=== PATIENT | male | born 1950 | race Caucasian/White ===

== ENCOUNTER → 2018-12-09 | Day surgery (SDC) | payer MEDICARE ==
[2018-12-06 17:38] LABS: BASOPHILS # (AUTO) 0.1 (0.0-0.1); BASOPHILS % 0.5 % (0.0-1.0); EOSINOPHILS # (AUTO) 0.2 (0.0-0.4); EOSINOPHILS % 2.1 % (0.0-6.0); HEMATOCRIT 40.1 % (38.2-49.6); HEMOGLOBIN 13.7 g/dL (14.0-18.0); LYMPHOCYTES # (AUTO) 2.4 (1.0-3.2); LYMPHOCYTES % 22.3 % (18.0-39.1); MEAN CORPUSCULAR HEMOGLOBIN 30.9 pg (28-32); MEAN CORPUSCULAR HGB CONC 34.2 g/dL (31-35); MEAN CORPUSCULAR VOLUME 90.3 fL (81-99); MONOCYTES % 9.2 % (4.4-11.3); NEUTROPHILS # (AUTO) 7.1 (2.1-6.9); NEUTROPHILS % 65.6 % (38.7-80.0); PLATELET COUNT 220 x10e3/uL (140-360); RED BLOOD COUNT 4.44 x10e6/uL (4.3-5.7); RED CELL DISTRIBUTION WIDTH 12.6 % (11.7-14.4)
--- NOTE | 2018-12-06 17:42 | Diagnostic Imaging Report ---
EXAMINATION: CHEST 2 VIEWS INDICATION: ^PREOP COMPARISON: None FINDINGS: AP view TUBES and LINES: None. LUNGS/PLEURA: The lungs are clear. No pleural effusion or pneumothorax. HEART AND MEDIASTINUM: The cardiomediastinal silhouette is unremarkable. BONES AND SOFT TISSUES: No acute osseous lesion. Soft tissues are unremarkable. Spinal stimulator in the midthoracic spinal canal posteriorly. Median sternotomy wires. Calcific aortic arch. Partially visualized ACDF lower cervical. UPPER ABDOMEN: No free air under the diaphragm. IMPRESSION: No acute thoracic abnormality. Signed by: Davon Garcia MD on 12/06/2018 5:39 PM
[2018-12-06 17:58] LABS: ANION GAP 12.4 mmol/L (8-16); BLOOD UREA NITROGEN 22 mg/dL (7-26); BUN/CREATININE RATIO 19 (6-25); CALCIUM 9.6 mg/dL (8.4-10.2); CARBON DIOXIDE 26 mmol/L (22-29); CHLORIDE 101 mmol/L (98-107); CREATININE, SERUM 1.14 mg/dL (0.72-1.25); EST GLOMERULAR FILTRATION RATE > 60 ML/MIN (60-); GLUCOSE 224 mg/dL (74-118); POTASSIUM 4.4 mmol/L (3.5-5.1); SODIUM 135 mmol/L (136-145)
[~2018-12-09] MED LIST: ASPIRIN325 MG PO; ATORVASTATIN CA20 MG PO; BACITRACIN 50,000 UNIT VIAL ONE; CASCARA SAGRADA PO; CEFAZOLIN SOD 1 GM/NS 50ML 50 ML IV ONE; CLONAZEPAM0.5 MG PO; FENTANYL CITRATE/PF 100MCG/2 ML INJ ONE; GABAPENTIN400 MG PO; LIDOCAINE 1% W/EPINEPHRINE 20 ML VIAL ONE; LIDOCAINE HCL 2% LOCAL INJ 5 ML SDV VIAL INJ ONE; LISINOPRIL10 MG PO; METHOCARBAMOL750 MG PO; MIDAZOLAM HCL 2 MG/2 ML VIAL ONE; MUPIROCIN 2% OINT 22 GM TUBE ONE; NICOTINE PATCH1 EAC5 TOP; NORCO 10-325 T1 EACH PO; NOVOLOG100 UNIT/1 SQ; ONDANSETRON HCL INJ 2MG/ML 2ML 2 MG/ML VIAL ONE; PROPOFOL IV EMULSION 10 MG/ML 20 ML VIAL ONE; SEVOFLURANE INHAL SOLN 250 ML PEN BTL ONE; [UNRECOGNIZED DRUG - OTHER] PO; basaglar SQ
--- OUTSIDE RECORDS SUMMARY | 2018-12-09 05:22 | XMS REPORT | Clinical Summary ---
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 Role Phone Corwin Doyle MD PCP Allergies Comments Active Allergy Reactions Severity Noted Date Naproxen Sodium Anaphylaxis High 10/26/2015 SEIZURES; STATES HEART STOPPED AND HAD TO BE SHOCKED Meperidine Anaphylaxis, High 10/26/2015 Other (See Comments) All anti-inflammatory drugs Ibuprofen Swelling High 09/08/2016 HARD TO BREATH Naproxen Swelling 10/26/2015 Nsaids (Non-Steroidal Anti-Inflammatory Drug) All anti inflammatories Other Swelling 09/01/2016 Medications End Date Status Medication Sig Dispensed Refills Start Date Active pen needle, diabetic 33 USE TO 0 gauge x 5/16" needle ADMINISTER INSULIN Active gabapentin (NEURONTIN) Take 300 mg 0 300 mg capsule by mouth. Active HYDROcodone-acetaminophen TAKE ONE (1) 0 (NORCO) 10-325 mg per TABLET(S) BY 7 tablet MOUTH EVERY FOUR HOURS MAX OF 5 TABLETS PER DAY. Active methocarbamol (ROBAXIN) Take 750 mg 0 750 MG tablet by mouth 4 (four) times a day. Active atorvastatin (LIPITOR) 40 Take 40 mg by 0 MG tablet mouth daily. Active insulin Inject under 0 glargine,hum.rec.anlog the skin. 30 (LANTUS U-100 INSULIN units at SUBQ) night Active acetaminophen 500 mg Take by mouth 0 coapsule 2 (two) times a day. Active ascorbic acid, vitamin C, Take 500 mg 0 (VITAMIN C) 500 MG tablet by mouth daily. 04/22/2019 Active albuterol (VENTOLIN HFA) Inhale 2 18 g 11 90 mcg/actuation puffs every 6 8 inhalerIndications: (six) hours Prescription refill as needed for wheezing. Active fluticasone-vilanterol Inhale 1 5 each 2 (BREO ELLIPTA) 100-25 inhalations 8 mcg/dose blister with once daily. device powder for inhalationIndications: Prescription refill 05/28/2019 Active testosterone cypionate INJECT ONE 10 mL 4 (DEPOTESTOTERONE (1) ML(S) 8 CYPIONATE) 200 mg/mL INTRAMUSCULAR injectionIndications: LY EVERY 2 Hypogonadism in male WEEKS. 10/11/2019 Active insulin GLARGINE (LANTUS Inject 30 15 mL 5 SOLOSTAR) 100 unit/mL Units under 9 injection (pen) the skin nightly. Active insulin ASPART (NovoLOG 15units three 60 mL 3 Flexpen U-100 Insulin) times a day 9 100 unit/mL insulin pen Active lisinopril TAKE ONE (1) 90 tablet 0 (PRINIVIL,ZESTRIL) 20 mg TABLET(S) BY 9 tablet MOUTH DAILY. 01/19/2018 Discontinued insulin lispro (HumaLOG Inject 15 20 pen 3 KwikPen) 100 unit/mL Units under 7 insulin pen the skin 3 (three) times a day. 01/19/2018 Discontinued LEVEMIR FLEXTOUCH 100 INJECT 30 6 pen 2 unit/mL (3 mL) insulin UNITS 7 pen SUBCUTANEOUSL Y EVERY DAY. 02/11/2018 Discontinued lisinopril Take 1 tablet 90 tablet 1 (PRINIVIL,ZESTRIL) 20 mg (20 mg total) 7 tablet by mouth daily. 04/06/2018 Discontinued tiZANidine (ZANAFLEX) 4 Take 4 mg by 0 MG tablet mouth every 8 (eight) hours as needed for muscle spasms. 04/09/2018 Discontinued aspirin 325 MG tablet Take 325 mg 0 by mouth. 04/22/2018 Discontinued albuterol (PROAIR Inhale 2 18 g 5 HFA,PROVENTIL puffs every 6 8 HFA,VENTOLIN HFA) 90 (six) hours mcg/actuation as needed for inhalerIndications: wheezing. Respiratory infection 04/21/2018 Discontinued testosterone cypionate Inject 200mg 2 kit 5 200 mg/mL kitIndications: (1mL) every 2 8 Hypogonadism in male weeks intramuscular ly. 01/25/2018 Discontinued tamsulosin (FLOMAX) 0.4 TAKE 1 30 capsule 1 mg capsule,extended CAPSULE (0.4 8 release 24hrIndications: MG TOTAL) BY Urinary frequency, Benign MOUTH DAILY. prostatic hyperplasia with lower urinary tract symptoms, symptom details unspecified 03/16/2018 testosterone cypionate Inject 1 mL 10 mL 2 (DEPOTESTOTERONE (100 mg 8 CYPIONATE) 100 mg/mL total) into injection the shoulder, thigh, or buttocks every 14 (fourteen) days for 90 days. 01/22/2018 clonAZEPAM (KlonoPIN) 0.5 TAKE ONE (1) 180 tablet 0 MG tablet TABLET(S) BY 8 MOUTH TWICE A DAY NEEDED FOR ANXIETY. 01/20/2018 Discontinued insulin DETEMIR (LEVEMIR INJECT 30 45 mL 1 FLEXTOUCH U-100 INSULN) UNITS 8 100 unit/mL (3 mL) SUBCUTANEOUSL insulin pen Y EVERY DAY. 04/06/2018 Discontinued insulin lispro (HumaLOG Inject 15 20 pen 3 KwikPen Insulin) 100 Units under 8 unit/mL injection pen the skin 3 (three) times a day. 01/20/2018 Discontinued insulin GLARGINE (LANTUS Inject 30 9 mL 3 SOLOSTAR) 100 unit/mL Units under 8 injection the skin (pen)Indications: Type 2 nightly. diabetes mellitus without complication, with long-term current use of insulin ([facility]) 04/06/2018 Discontinued insulin GLARGINE Inject 30 9 mL 3 (BASAGLAR KWIKPEN U-100 Units under 8 INSULIN) 100 unit/mL the skin injection nightly. (pen)Indications: Type 2 diabetes mellitus without complication, with long-term current use of insulin ([facility]) 04/06/2018 Discontinued tamsulosin (FLOMAX) 0.4 TAKE ONE (1) 30 capsule 0 mg capsuleIndications: CAPSULE(S) BY 8 Urinary frequency, Benign MOUTH DAILY. prostatic hyperplasia with lower urinary tract symptoms, symptom details unspecified 06/23/2018 Discontinued lisinopril TAKE ONE (1) 90 tablet 0 (PRINIVIL,ZESTRIL) 20 mg TABLET(S) BY 8 tablet MOUTH DAILY. 04/09/2018 Discontinued UNABLE TO FIND ketotifen 0 04/22/2018 Discontinued metoprolol succinate XL Take 25 mg by 0 (TOPROL-XL) 25 mg 24 hr mouth daily. tablet 06/23/2018 Discontinued clonAZEPAM (KlonoPIN) 0.5 Take 0.5 mg 0 MG tablet by mouth 2 (two) times a day as needed for seizures. 04/22/2018 Discontinued fluticasone-vilanterol Inhale 1 0 (BREO ELLIPTA) 100-25 inhalations mcg/dose blister with once daily. device powder for inhalation 10/11/2018 Discontinued insulin aspart (NOVOLOG Inject under 0 FLEXPEN U-100 INSULIN the skin. 15 SUBQ) three times a day 04/09/2018 Discontinued sildenafil (VIAGRA) 100 TAKE ONE (1) 5 MG tablet TABLET(S) BY 8 MOUTH EVERY DAY NEEDED. 04/22/2018 Discontinued testosterone cypionate INJECT ONE 5 (DEPOTESTOTERONE (1) ML(S) 8 CYPIONATE) 200 mg/mL INTRAMUSCULAR injection LY EVERY 2 WEEKS. 04/14/2018 acetaminophen-codeine Take 1-2 40 tablet 0 (TYLENOL WITH CODEINE #3) tablets by 8 300-30 mg per tablet mouth every 6 (six) hours as needed for moderate pain for up to 5 days. 05/09/2018 docusate sodium (COLACE) Take 1 60 capsule 0 100 MG capsule capsule (100 8 mg total) by mouth 2 (two) times a day for 30 days. 04/19/2018 ciprofloxacin (CIPRO) 500 Take 1 tablet 20 tablet 0 MG tablet (500 mg 8 total) by mouth 2 (two) times a day for 10 days. 05/09/2018 docusate sodium (COLACE) Take 1 60 capsule 0 100 MG capsule capsule (100 8 mg total) by mouth 2 (two) times a day for 30 days. 04/22/2018 Discontinued testosterone cypionate INJECT ONE 10 mL 4 (DEPOTESTOTERONE (1) ML(S) 8 CYPIONATE) 200 mg/mL INTRAMUSCULAR injectionIndications: LY EVERY 2 Hypogonadism in male WEEKS. 04/22/2018 Discontinued testosterone cypionate INJECT ONE 10 mL 5 (DEPOTESTOTERONE (1) ML(S) 8 CYPIONATE) 200 mg/mL INTRAMUSCULAR injectionIndications: LY EVERY 2 Prescription refill WEEKS. 07/21/2018 testosterone cypionate INJECT ONE 10 mL 5 (DEPOTESTOTERONE (1) ML(S) 8 CYPIONATE) 200 mg/mL INTRAMUSCULAR injectionIndications: LY EVERY 2 Prescription refill WEEKS. 10/12/2018 Discontinued lisinopril TAKE ONE (1) 90 tablet 0 (PRINIVIL,ZESTRIL) 20 mg TABLET(S) BY 8 tablet MOUTH DAILY. 09/22/2018 clonAZEPAM (KlonoPIN) 0.5 TAKE ONE (1) 180 tablet 0 MG tablet TABLET(S) BY 8 MOUTH TWICE A DAY NEEDED FOR ANXIETY. Active Problems Problem Noted Date CAD in [place] artery 10/26/2015 Hypogonadism in male 08/24/2015 Nicotine dependence 08/24/2015 Type 2 diabetes mellitus 08/24/2015 Encounters Care Team Description Date Type Specialty Isabel Villalta 11/24/2018 Patient Quality Outreach Corwin Doyle MD 10/14/2018 Telephone Internal Medicine Corwin Doyle MD 10/12/2018 Refill Internal Medicine Marina Villanueva MA 10/11/2018 Orders Only Internal Medicine Marina Villanueva MA 10/01/2018 Telephone Internal Medicine Corwin Doyle MD Flank pain 09/30/2018 Hospital Radiology Encounter Corwin Doyle MD Flank pain (Primary Dx); Type 2 diabetes mellitus with hyperglycemia, with long-term current use of insulin (HCC); Open wound of right foot, initial encounter 09/23/2018 Office Visit Internal Medicine Angela Deleon MA 09/10/2018 Refill Access Corwin Doyle MD 06/23/2018 Refill Internal Medicine Corwin Doyle MD 06/23/2018 Refill Internal Medicine Corwin Doyle MD Hypogonadism in male 05/27/2018 Refill Internal Medicine Corwin Doyle MD Type 2 diabetes mellitus without complication, with long-term current use of insulin (HCC) (Primary Dx); Pain in both upper extremities; Prescription refill 04/22/2018 Office Visit Internal Medicine Corwin Doyle MD Hypogonadism in male 04/21/2018 Refill Internal Medicine Mary Lou Garcia FNP 04/09/2018 Anesthesia General Surgery Event Dilshad Garcias MD PLACEMENT OF COLOPLAST TITAN INFLATABLE PENILE PROSTHESIS 04/09/2018 Surgery General Surgery Dilshad Garcias MD 04/09/2018 [facility] General Surgery Encounter Dilshad Garcias MD Preop testing (Primary Dx) 04/06/2018 Pre-Admit Pre-Admission Testing Testing Appointment Corwin Doyle MD 02/11/2018 Refill Internal Medicine Corwin Doyle MD Urinary frequency; Benign prostatic hyperplasia with lower urinary tract symptoms, symptom details unspecified 01/25/2018 Refill Internal Medicine Corwin Doyle MD Type 2 diabetes mellitus without complication, with long-term current use of insulin (Primary Dx) 01/20/2018 Office Visit Internal Medicine Marina Villanueva MA 01/19/2018 Orders Only Internal Medicine Corwin Doyle MD 01/18/2018 Refill Internal Medicine Corwin Doyle MD 12/23/2017 Refill Internal Medicine Marina Villanueva MA 12/16/2017 Orders Only Internal Medicine after 12/08/2017 Family History Medical History Relation Name Comments Heart disease Father Heart disease Mother Kidney disease Mother Relation Name Status Comments Father Mother Social History Date Tobacco Use Types Packs/Day Years Used Current Every Day Smoker Cigarettes 1 55 Smokeless Tobacco: Never Used Tobacco Cessation: Ready to Quit: Yes; Counseling Given: Yes Alcohol Use Drinks/Week oz/Week Comments Yes social Sex Assigned at Date Recorded Not on file Industry Job Start Date Occupation Not on file Not on file Not on file Travel End Travel History Travel Start No recent travel history available. Last Filed Vital Signs Time Taken Vital Sign Reading 09/23/2018 1:16 PM CDT Blood Pressure 150/69 09/23/2018 1:16 PM CDT Pulse 77 04/09/2018 12:15 PM CDT Temperature 36.6 C (97.8 F) 04/09/2018 1:30 PM CDT Respiratory Rate 20 04/09/2018 1:30 PM CDT Oxygen Saturation 96% - Inhaled Oxygen - Concentration 09/23/2018 1:16 PM CDT Weight 114 kg (252 lb) 09/23/2018 1:16 PM CDT Height 182.9 cm (6') 09/23/2018 1:16 PM CDT Body Mass Index 34.18 Plan of Treatment Health Maintenance Due Date Last Done Comments SHINGLES VACCINES (#1) 1998 65+ PNEUMOCOCCAL VACCINE 2013 (1 of 2 - PCV13) URINE MICROALBUMIN 08/06/2018 08/06/2017 COLONOSCOPY SCREENING 12/27/2018 Postponed from 1998 (Patient Refused) DIABETIC FOOT EXAM 01/22/2019 01/22/2018, 01/22/2018 INFLUENZA VACCINE 01/27/2019 DIABETIC RETINAL EYE EXAM 01/12/2020 01/11/2018, 03/31/2017 (Previously completed) Procedures Comments Procedure Name Priority Date/Time Associated Diagnosis US ABDOMEN COMPLETE Routine 09/30/2018 Flank pain 10:18 AM CDT URINALYSIS, COMPLETE, Routine 09/24/2018 Flank pain WITH REFLEX TO CULTURE 11:30 AM CDT COMPREHENSIVE METABOLIC Routine 09/24/2018 Flank pain PANEL 11:30 AM CDT CBC WITH PLATELET AND Routine 09/24/2018 Flank pain DIFFERENTIAL 11:30 AM CDT POC GLYCOSYLATED Routine 09/23/2018 Type 2 diabetes mellitus HEMOGLOBIN (HGB A1C) 1:30 PM CDT with hyperglycemia, with long-term current use of insulin (HCC) POC GLYCOSYLATED Routine 04/22/2018 Type 2 diabetes mellitus HEMOGLOBIN (HGB A1C) 12:19 PM CDT without complication, with long-term current use of insulin (HCC) POC GLUCOSE Routine 04/09/2018 9:55 AM CDT DE AN ELECTIVE Routine 04/09/[address] SU[address]LOTTIC AIRWAY 8:34 AM CDT Procedure Note - Faby Monet CRNA - 04/09/2018 8:34 AM CDT Airway Date/Time: 04/09/2018 8:00 AM Performed by: FABY MONET Authorized by: RAKESH ANNE Location: OR Urgency: Elective Difficult Airway: No Anesthesio logist: RAKESH ANNE Resident/C RNA/AA: FABY MONET Performed by: resident/C RNA/AA Preoxygena arnol with 100% O2: Yes C-spine Precaution s Maintained Throughout : Yes Mask Ventilatio n: Not attempted Final Airway Type: Supraglott ic airway Final LMA: Unique LMA Size: 4 Number of Attempts at Approach: 1 Atraumati c LMA insertion; lips/teeth /gums unchanged. POC GLUCOSE Routine 04/09/2018 6:28 AM CDT ECG 12-LEAD Routine 04/06/2018 Preop testing 12:51 PM CDT ESTIMATED GFR Routine 04/06/2018 12:46 PM CDT PARTIAL THROMBOPLASTIN Routine 04/06/2018 Preop testing TIME (PTT) 12:46 PM CDT PROTHROMBIN TIME WITH INR Routine 04/06/2018 Preop testing 12:46 PM CDT HC COMPLETE BLD COUNT Routine 04/06/2018 Preop testing W/AUTO DIFF 12:46 PM CDT BASIC METABOLIC PANEL Routine 04/06/2018 Preop testing 12:46 PM CDT POC GLYCOSYLATED Routine 01/20/2018 Type 2 diabetes mellitus HEMOGLOBIN (HGB A1C) 3:07 PM CDT without complication, with long-term current use of insulin after 12/08/2017 Results * US Abdomen Complete (09/30/2018 10:18 AM CDT) Specimen Narrative Performed At EXAM: US ABDOMEN COMPLETE [facility] CLINICAL DATA:R10.9 Unspecified abdominal pain, flank pain TECHNIQUE: Sonographic evaluation of the abdomen was performed. COMPARISON: NONE. IMPRESSION: 1.Hepatic echogenicity is normal. The liver is normal size. There are no discrete lesions. There is no evidence of intrahepatic biliary ductal dilation The common bile duct has normal caliber. The portal vein is patent with normal hepatopetal flow. 2.The gallbladder is normal. There is no evidence of cholelithiasis, pericholecystic fluid, or gallbladder wall thickening. 3.Limited views of the pancreas are unremarkable. 4.The kidneys are normal size. The kidneys have normal echogenicity. Vascular flow is unremarkable. There is no evidence of hydronephrosis or perinephric fluid. Bilateral simple appearing renal cysts, largest is on the left measuring up to 2.1 cm. 6 mm nonobstructing stone in the lower pole right kidney. 5.The spleen has normal echogenicity. The spleen is normal size. 6.No evidence of ascites. 7.Visualized aorta and IVC are unremarkable. [id number] Procedure Note Interface, Radiology Results Incoming - 09/30/2018 11:23 AM CDT EXAM: US ABDOMEN COMPLETE CLINICAL DATA: R10.9 Unspecified abdominal pain, flank pain TECHNIQUE: Sonographic evaluation of the abdomen was performed. COMPARISON: NONE. IMPRESSION: 1. Hepatic echogenicity is normal. The liver is normal size. There are no discrete lesions. There is no evidence of intrahepatic biliary ductal dilation The common bile duct has normal caliber. The portal vein is patent with normal hepatopetal flow. 2. The gallbladder is normal. There is no evidence of cholelithiasis, pericholecystic fluid, or gallbladder wall thickening. 3. Limited views of the pancreas are unremarkable. 4. The kidneys are normal size. The kidneys have normal echogenicity. Vascular flow is unremarkable. There is no evidence of hydronephrosis or perinephric fluid. Bilateral simple appearing renal cysts, largest is on the left measuring up to 2.1 cm. 6 mm nonobstructing stone in the lower pole right kidney. 5. The spleen has normal echogenicity. The spleen is normal size. 6. No evidence of ascites. 7. Visualized aorta and IVC are unremarkable. [id number] Performing Organization Address City/State/Zipcode Phone Number [facility] [address] [place] [address] * URINALYSIS, COMPLETE, WITH REFLEX TO CULTURE (09/24/2018 11:30 AM CDT) Color, UA YELLOW YELLOW [facility] Appearance CLEAR CLEAR [facility] Specific 1.026 1.001 - 1.035 [facility] gravity, urine [facility] [place] pH, urine < OR=5.0 5.0 - 8.0 [facility] Glucose, urine 3+ (A) NEGATIVE [facility] Bilirubin, UA NEGATIVE NEGATIVE [facility] Ketones, UA NEGATIVE NEGATIVE [facility] Occult blood, NEGATIVE NEGATIVE [facility] Protein, UA 2+ (A) NEGATIVE [facility] Nitrite, UA NEGATIVE NEGATIVE [facility] Leukocyte NEGATIVE NEGATIVE [facility] esterase, [facility] WBC, UA NONE SEEN < OR=5 /HPF [facility] RBC, UA NONE SEEN < OR=2 /HPF [facility] Squamous NONE SEEN < OR=5 /HPF [facility] epithelial [facility]AG[facility] cells, UA [facility] Bacteria, UA NONE SEEN NONE SEEN /HPF [facility] Hyaline casts, NONE SEEN NONE SEEN /LPF [facility] UA [facility] Reflex NO CULTURE INDICATED [employer] [facility] Specimen Narrative Performed At FASTING:NO [facility] FASTING: NO Resulting Agency Comment Performing Organization Information: Site ID: [id number] Name: [facility] Address: [address] [place] [id number] Director: Rae Petit Performing Organization Address City/State/Zipcode Phone Number [facility] [address] [address] * CBC with platelet and differential (09/24/2018 11:30 AM CDT) Only the most recent of 2 results within the time period is included. WBC 10.3 3.8 - 10.8 [facility] Thousand/uL [facility] RBC 4.50 4.20 - 5.80 [facility] Million/uL [facility] HGB 14.0 13.2 - 17.1 g/dL [facility] HCT 41.0 38.5 - 50.0 % [facility] MCV 91.1 80.0 - 100.0 fL [facility] MCH 31.1 27.0 - 33.0 pg [facility] MCHC 34.1 32.0 - 36.0 g/dL [facility] RDW 12.2 11.0 - 15.0 % [facility] Platelet count 222 140 - 400 [facility] Thousand/uL [facility] MPV 11.2 7.5 - 12.5 fL [facility] [place] Neutrophils, 6,293 1,500 - 7,800 [facility] absolute cells/uL [facility] [place] Lymphocytes, 2,781 850 - 3,900 cells/uL [facility] absolute [facility] [place] Monocytes, 927 200 - 950 cells/uL [facility] Eosinophils, 216 15 - 500 cells/uL [facility] absolute [facility] [place] Basophils, 82 0 - 200 cells/uL [facility] absolute [facility] [place] Neutrophils 61.1 % [facility] Lymphocytes 27.0 % [facility] Monocytes 9.0 % [facility] Eosinophils 2.1 % [facility] Basophils + RC 0.8 % [facility] Specimen Blood Narrative Performed At FASTING:NO [facility] FASTING: NO Resulting Agency Comment Performing Organization Information: Site ID: [id number] Name: [facility] Address: [address] [place] [address] Director: Rae Petit Performing Organization Address City/State/Zipcode Phone Number [facility] [facility] [address] [place] [address] * Comprehensive metabolic panel (09/24/2018 11:30 AM CDT) Glucose 240 (H) 65 - 139 mg/dL [facility] Comment: [facility] Non-fasting [facility] reference interval BUN, whole 20 7 - 25 mg/dL [facility] blood [facility] Creatinine 0.93 0.70 - 1.18 mg/dL [facility] Comment: DIAGNOSTICS For patients >49 years of age, [facility] the reference limit for Creatinine is approximately 13% higher for people identified as -[place]. EGFR Non-Afr. 83 > OR=60 [facility] [place] mL/min/1.73m2 [facility] EGFR 96 > OR=60 [facility] [place] mL/min/1.73m2 [facility] BUN/creatinine NOT APPLICABLE 6 - 22 (calc) [facility] ratio [facility] Sodium 136 135 - 146 mmol/L [facility] Potassium 4.7 3.5 - 5.3 mmol/L [facility] Chloride 102 98 - 110 mmol/L [facility] CO2 27 20 - 32 mmol/L [facility] Calcium 9.2 8.6 - 10.3 mg/dL [facility] Protein 6.4 6.1 - 8.1 g/dL [facility] Albumin, S 4.1 3.6 - 5.1 g/dL [facility] Globulin, total 2.3 1.9 - 3.7 g/dL [facility] (calc) [facility] Albumin/globuli 1.8 1.0 - 2.5 (calc) [facility] n ratio [facility] Total bilirubin 0.5 0.2 - 1.2 mg/dL [facility] Alkaline 78 40 - 115 U/L [facility] phosphatase [facility] AST 17 10 - 35 U/L [facility] ALT 9 9 - 46 U/L [facility] Specimen Blood Narrative Performed At FASTING:NO [facility] FASTING: NO Resulting Agency Comment Performing Organization Information: Site ID: [id number] Name: [facility] Address: [address] [place] [address] Director: Rae Petit Performing Organization Address City/State/Zipcode Phone Number [facility] [address] [place] [address] * POC glycosylated hemoglobin (Hb A1C) (09/23/2018 1:30 PM CDT) Only the most recent of 3 results within the time period is included. [facility] POC Hemoglobin 9.2 % A1C Specimen Blood * POC glucose (04/09/2018 9:55 AM CDT) Only the most recent of 2 results within the time period is included. [facility] POC glucose 183 (H) 65 - 99 mg/dL [facility] Comment: OF PATHOLOGY RN Notified AND GENOMIC Meter ID: [id number] MEDICINE Roller Varnisher: Delfina Carpenter Specimen Performing Organization Address [facility] Phone Number [facility] OF [address] [place] [address] PATHOLOGY AND GENOMIC MEDICINE * ECG 12 lead (04/06/2018 12:51 PM CDT) [facility] Ventricular 81 [facility] rate Atrial rate 81 [facility] DE interval 168 [facility] QRSD interval 148 [facility] QT interval 410 [facility] QTC interval 476 [facility] P axis 1 70 [facility] QRS axis 1 97 [facility] T wave axis -79 [facility] EKG impression Normal sinus rhythm-Possible [facility] Left atrial enlargement-Nonspecific intraventricular block-Possible Lateral infarct , age undetermined-Abnormal ECG-In automated comparison with ECG of 31-JUL-2016 15:48,-T wave inversion less evident in Lateral leads- Specimen Performing Organization Address City/[facility] Phone Number [facility] [address] [place] [address] * Estimated GFR (04/06/2018 12:46 PM CDT) [facility] Estimated GFR 87 mL/min/1.73 m2 [facility] Comment: OF PATHOLOGY CatergoryUnitsInte AND GENOMIC rpretation MEDICINE G1 >=90 Normal or high G2 60-89Mildly decreased [id number] Mildly to moderately decreased [id number] Moderately to severely decreased G4 15-29Severely decreased G5 <15Kidney failure The eGFR was calculated using the Chronic Kidney Disease Epidemiology Collaboration (CKD-EPI) equation. Interpretation is based on recommendations of the National Kidney Foundation-Kidney Disease Outcomes Quality Initiative (NKF-KDOQI) published in 2014. Specimen Plasma specimen Performing Organization Address [facility] [place] [address] PATHOLOGY AND [facility] * Partial thromboplastin time, activated (04/06/2018 12:46 PM CDT) Pathologist [facility] PTT 31.8 23.0 - 36.0 sec [facility] Comment: OF PATHOLOGY PTT therapeutic range for AND GENOMIC unfractionated heparin is MEDICINE 61.0-112.0 seconds which corresponds to Anti-Xa 0.3-0.7 U/ml. Specimen Blood Performing Organization Address [facility] [place] [address] PATHOLOGY AND [facility] * Prothrombin time with INR (04/06/2018 12:46 PM CDT) Pathologist [facility] Prothrombin 14.5 12.0 - 15.0 sec [facility] time OF PATHOLOGY AND [facility] INR 1.1 [facility] Comment: OF PATHOLOGY The International Normalized AND GENOMIC Ratio (INR) is a therapeutic MEDICINE monitoring tool for patients who are stable on oral anticoagulant therapy. An INR of 2.0-3.0 is suggested for deep vein thrombosis/pulmonary embolism. Specimen Blood Performing Organization Address [facility] [place] [address] PATHOLOGY AND [facility] * Basic metabolic panel (04/06/2018 12:46 PM CDT) Pathologist [facility] Sodium 136 135 - 148 mEq/L [facility] OF PATHOLOGY AND GENOMIC MEDICINE Potassium 5.1 (H) 3.5 - 5.0 mEq/L [facility] Chloride 100 98 - 112 mEq/L [facility] CO2 27 24 - 31 mEq/L [facility] Anion gap 9@ANIO 7 - 15 mEq/L [facility] BUN 15 8 - 23 mg/dL [facility] Creatinine 0.87 0.70 - 1.20 mg/dL [facility] Glucose 162 (H) 65 - 99 mg/dL [facility] Calcium 9.6 8.8 - 10.2 mg/dL [facility]IC[facility] Specimen Plasma specimen Performing Organization Address City/State/Zipcode Phone Number [place] [phone] [facility] [place] [address] PATHOLOGY AND GENOMIC MEDICINE after 12/08/2017 Insurance Type Payer Benefit Subscriber ID Effective Phone Address Plan / Dates Group Medicare MEDICARE MEDICARE xxxxxxxxxxx 2013- [place], PART A AND Present [place] B Commercial AAR AAR xxxxxxxxxxx 2013- SUPPLEMENT Present ([place]) [address] [place] [address] Advance Directives Patient has advance care planning documents on file. For more information, fernando de luna contact: Elpidio Stein [address] [place] [address]
--- OUTSIDE RECORDS SUMMARY | 2018-12-09 05:23 | XMS REPORT | Clinical Summary ---
Author Author [facility] Address Unknown Phone Unavailable Care Team Providers Care Transit Police Officer Name Role Phone Corwin Doyle PCP Allergies Comments Active Allergy Reactions Severity Noted Date All anti-inflammatory drugs Ibuprofen Swelling 09/08/2016 Meperidine Anaphylaxis High 09/08/2016 Medications End Date Status Medication Sig Dispensed Refills Start Date Active tiZANidine (ZANAFLEX) 4 Take 4 mg by 0 MG tablet mouth every 6 (six) hours as needed. Active insulin detemir (LEVEMIR) Inject 30 0 100 unit/mL injection Units subcutaneousl y nightly. Active insulin lispro (HUMALOG) Inject 15 0 100 unit/mL injection Units subcutaneousl y 3 (three) times daily before meals. Active albuterol-ipratropium Inhale 2 0 (COMBIVENT) 18-103 puffs by mcg/actuation inhaler mouth via inhaler every 6 (six) hours as needed for Wheezing. Active lisinopril Take 20 mg by 0 (PRINIVIL,ZESTRIL) 20 MG mouth daily. tablet Active clonazePAM (KLONOPIN) 0.5 Take 0.5 mg 0 MG tablet by mouth 2 (two) times daily as needed for Anxiety. Active aspirin 325 MG tablet Take 325 mg 0 by mouth daily. Active HYDROcodone-acetaminophen Take 1 tablet 0 (NORCO 10-325) 10-325 mg by mouth per tablet every 6 (six) hours as needed for Pain. Active gabapentin (NEURONTIN) Take 300 mg 0 300 MG capsule by mouth 3 (three) times daily. Active ACETAMINOPHEN/DIPHENHYDRA Take by 0 MINE (TYLENOL PM ORAL) mouth. Active senna (SENOKOT) 8.6 mg Take 1 tablet 0 tablet by mouth daily. Active CASCARA SAGRADA ORAL Take by 0 mouth. Active Missing or Non-Formulary ASTHAFEN 0 Medication 1 MG . Active Problems Problem Noted Date Chronic pain disorder 09/19/2016 Social History Date Tobacco Use Types Packs/Day Years Used Current Every Day Smoker 1 50 Alcohol Use Drinks/Week oz/Week Comments Yes 1 Glasses of 0.6 wine Sex Assigned at Date Recorded Not on file Industry Job Start Date Occupation Not on file Not on file Not on file Travel End Travel History Travel Start No recent travel history available. Last Filed Vital Signs Not on file Plan of Treatment Not on file Implants Device Identifier Shelf Expiration Date Model / Serial / Lot Implanted Type Area Manufactur er 01/25/2020 [id number] / / [id number] Lead Vectris Surescan 1x8 60cm Pain N/A: Spine [employer]: [id number] - [id number] Mgmt/Stimu Lumbar NEUROMODUL Implanted: Qty: 1 on 09/19/2016 by Ck Simmons MD 07/14/2020 [id number] / / [id number] Lead Vectris Surescan 1x8 60cm Pain N/A: Spine [employer]: [id number] - [id number] Mgmt/Stimu Lumbar NEUROMODUL Implanted: Qty: 1 on 09/19/2016 by Ck Simmons MD 06/18/2020 [id number] / / [id number] Kt [facility] Medtronic [id number] - Pain N/A: Spine [employer]: [id number] Mgmt/Stimu Lumbar NEUROMODUL Implanted: Qty: 1 on 09/19/2016 by Ck Simmons MD 07/26/2017 [id number] / [id number] / Sensor Surescan Restore [id number] - Pain N/A: Spine [employer]: [id number] Mgmt/Stimu Lumbar NEUROMODUL Implanted: Qty: 1 on 09/19/2016 [place] [id number] / [id number] / 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 Mystim Pat [id number] - Pain [employer]: [id number] Mgmt/Stimu NEUROMODUL Implanted: Qty: 1 on 09/19/2016 [place] [id number] / [id number] / 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
--- OUTSIDE RECORDS SUMMARY | 2018-12-09 05:23 | XMS REPORT ---
Author Author [facility] Address Unknown Phone Unavailable Care Team Providers Care Drosophere Operator Name Role Phone IBETH IBRAHIM Unavailable Unavailable ERIN JAVIER Unavailable Unavailable Payers Payer Name Policy Type Policy Number Effective Date Expiration Date Problems This patient has no known problems. Allergies, Adverse Reactions, Alerts Allergy Name Allergy Type Status Severity Reaction(s) Onset Date Inactive Date Treating Clinician Comments NSAIDS (Non-Steroidal Anti-Inflamma DA Active [place] 2016-03-11 00:00:00 meperidine DA Active [place] 2016-03-11 00:00:00 Medications This patient has no known medications. Results Test Description Test Time Test Comments Text Results Atomic Results Result Comments CHEST 2 VIEWS 2018-12-06 17:38:00 [place] [address] Patient Name: JANETH CALL MR #: [id number] : 1950 Age/Sex: 68/M Req #: [id number] Adm Physician: Ordered by: IBETH IBRAHIM MD Report #: [id number] Location: OR Room/Bed: Procedure: [id number] DX/CHEST 2 VIEWS Exam Date: Exam Time: REPORT STATUS: Signed EXAMINATION: CHEST 2 VIEWS INDICATION: PREOP COM PARISON: None FINDINGS: AP view TUBES and LINES: None. LUNGS/PLEURA: The lungs are clear. No pleural effusion or pneumothorax. HEART AND MEDIASTINUM: The cardiomediastinal silhouette is unremarkable. BONES AND SOFT TISSUES: No acute osseous lesion. Soft tissues are unremarkable. Spinal stimulator in the midthoracic spinal canal posteriorly. Median sternotomy wires. Calcific aortic arch. Partially visualized ACDF lower cervical. UPPER ABDOMEN: No free air under the diaphragm. IMPRESSION: No acute thoracic abnormality. Signed by: Davon Garcia MD on 12/06/2018 5:39 PM Dictated By: DOLLY GARCIA MD 38 Transcribed By: ALPESH on 12/06/181738 COPY TO: IBETH IBRAHIM MD - XR ABDOMEN 1 V 2018-10-05 12:44:00 Patient Name: JANETH CALL Unit No: [id number] EXAMS: CPT CODE: [id number] XR ABDOMEN 1 V 52825 EXAM: Abdominal xray INDICATION: N20.0,KIDNEY STONES LOCATION CODE: C3 COMPARISON: None TECHNIQUE: 3 views of the abdomen. DISCUSSION: Moderately large amount stool within the ascending, transverse and descending colon are seen. There is presence of a metallic leads extending from the left iliac crest region to the lower thoracic spine at midline are compatible with spinal cord stimulator. Patient is status post laminectomy involving L1-L5. Patient is status post posterior fusion of L5-S1. No subdiaphragmatic free air. IMPRESSION: 1. Status post Spinal cord stimulator. 2. Status post lower lumbar spine fusion. 3. Status post laminectomy throughout the lumbar spine. 4. No pathologic calcification visible. 5. If there is persistent clinical concern for nephrolithiasis, noncontrast CT abdomen would be helpful. at 0720 Reported and signed by: Fernando Harris MD CC: Ibeth Doyle MD; Dilshad Garcias MD Technologist: Maria R Estes, RT(R),RDMS(AB) Transcrpt Date/Tm/Trnsp: 10/05/2018 (0300) tTRES.HPD Orig Print D/T: S: 10/05/2018 (1246) [facility] NAME: JANETH CALL [address] [facility] [address] PHYS: [place] [address] : 1950 AGE: 68 SEX: M LOC: [facility] PHONE #: [phone] EXAM DATE: 10/05/2018 STATUS: REG CLI FAX #: [phone] RADIOLOGY NO: PAGE 1 Signed Report POCT-GLUCOSE METER 2016-09-19 11:49:00 POC-GLUCOSE METER (BEAKER) (test tpvc=9292) 162 mg/dL 70-110 TESTED AT [address] [address] POCT-GLUCOSE [id number] 07:18:00* Test Item Value Reference Range Comments POC-GLUCOSE METER (BEAKER) (test ichw=8501) 176 mg/dL 70-110 TESTED AT [address] [address] BASIC METABOLIC [id number] 15:28:00* Test Item Value Reference Range Comments SODIUM (BEAKER) (test gkjj=737) 139 meq/L 136-145 POTASSIUM (BEAKER) (test ovdo=528) 4.8 meq/L 3.5-5.1 CHLORIDE (BEAKER) (test szgv=876) 101 meq/L 98-107 CO2 (BEAKER) (test abor=328) 24 meq/L 22-29 BLOOD UREA NITROGEN (BEAKER) (test puhq=537) 21 mg/dL 7-21 CREATININE (BEAKER) (test uhrz=481) 0.90 mg/dL 0.57-1.25 GLUCOSE RANDOM (BEAKER) (test noyg=038) 161 mg/dL 70-105 CALCIUM (BEAKER) (test zycm=051) 9.9 mg/dL 8.4-10.2 EGFR (BEAKER) (test jquz=6799) 84 mL/min/1.73 sq m ESTIMATED GFR IS NOT ACCURATE CREATININE CLEARANCE IN PREDICTING GLOMERULAR FILTRATION RATE. ESTIMATED GFR IS NOT APPLICABLE FOR DIALYSIS PATIENTS. [id number] 15:10:00* Test Item Value Reference Range Comments PARTIAL THROMBOPLASTIN TIME (BEAKER) (test mgfh=753) 31.9 seconds 22.5-36.0 PROTHROMBIN TIME/[id number] 15:09:00* Test Item Value Reference Range Comments PROTIME (BEAKER) (test vtgi=850) 13.7 seconds 11.7-14.7 INR (BEAKER) (test wodb=884) 1.1 <=5.9 RECOMMENDED COUMADIN/WARFARIN INR THERAPY RANGESSTANDARD DOSE: 2.0 - 3.0 Inclu erickson: PROPHYLAXIS for venous thrombosis, systemic embolization; TREATMENT for steve ous thrombosis and/or pulmonary embolus.HIGH RISK: Target INR is 2.5-3.5 for pat ients with mechanical heart valves.CBC W/PLT COUNT & AUTO [id number] 15:05:00* Test Item Value Reference Range Comments WHITE BLOOD CELL COUNT (BEAKER) (test jqfd=680) 12.5 K/ L 4.0-10.0 RED BLOOD CELL COUNT (BEAKER) (test ftrx=479) 4.50 M/ L 4.20-5.80 HEMOGLOBIN (BEAKER) (test ybhs=215) 13.8 GM/DL 13.0-16.8 HEMATOCRIT (BEAKER) (test zptm=103) 42.1 % 40.0-50.0 MEAN CORPUSCULAR VOLUME (BEAKER) (test xnym=694) 93.5 fL 82.0-98.0 MEAN CORPUSCULAR HEMOGLOBIN (BEAKER) (test sigc=969) 30.6 pg 27.0-33.0 MEAN CORPUSCULAR HEMOGLOBIN CONC (BEAKER) (test yzta=863) 32.8 GM/DL 32.0-36.0 RED CELL DISTRIBUTION WIDTH (BEAKER) (test swuo=323) 13.2 % 10.3-14.2 PLATELET COUNT (BEAKER) (test wyee=110) 254 K/CU MM 150-430 MEAN PLATELET VOLUME (BEAKER) (test dnvz=243) 7.4 fL 6.5-10.5 NUCLEATED RED BLOOD CELLS (BEAKER) (test aitb=233) 0 /100 WBC 0-0 NEUTROPHILS RELATIVE PERCENT (BEAKER) (test pvur=783) 62 % LYMPHOCYTES RELATIVE PERCENT (BEAKER) (test mysp=760) 27 % MONOCYTES RELATIVE PERCENT (BEAKER) (test xqax=412) 9 % EOSINOPHILS RELATIVE PERCENT (BEAKER) (test gygm=781) 1 % BASOPHILS RELATIVE PERCENT (BEAKER) (test vfsf=844) 1 % NEUTROPHILS ABSOLUTE COUNT (BEAKER) (test vzth=010) 7.77 K/ L 1.80-8.00 LYMPHOCYTES ABSOLUTE COUNT (BEAKER) (test kbdy=707) 3.38 K/ L 1.48-4.50 MONOCYTES ABSOLUTE COUNT (BEAKER) (test ccjh=422) 1.08 K/ L 0.00-1.30 EOSINOPHILS ABSOLUTE COUNT (BEAKER) (test tlav=281) 0.13 K/ L 0.00-0.50 BASOPHILS ABSOLUTE COUNT (BEAKER) (test ijrt=562) 0.09 K/ L 0.00-0.20 0.00URINALYSIS W/ REFLEX URINE [id number] 15:05:00* Test Item Value Reference Range Comments COLOR (BEAKER) (test qrqg=442) Light Yellow CLARITY (BEAKER) (test fvuz=810) Clear SPECIFIC GRAVITY UA (BEAKER) (test qglx=501) 1.006 1.001-1.035 PH UA (BEAKER) (test fylh=501) 5.0 5.0-8.0 PROTEIN UA (BEAKER) (test pcry=498) Negative Negative GLUCOSE UA (BEAKER) (test aqkz=363) Negative Negative KETONES UA (BEAKER) (test ontn=458) Negative Negative BILIRUBIN UA (BEAKER) (test vopl=187) Negative Negative BLOOD UA (BEAKER) (test beaq=713) Negative Negative NITRITE UA (BEAKER) (test kode=905) Negative Negative LEUKOCYTE ESTERASE UA (BEAKER) (test thix=815) Negative Negative UROBILINOGEN UA (BEAKER) (test wytx=795) 0.2 mg/dL 0.2-1.0 RBC UA (BEAKER) (test xtrv=627) < /HPF WBC UA (BEAKER) (test azad=059) < /HPF SQUAMOUS EPITHELIAL (BEAKER) (test qkcu=133) < /HPF SOURCE(BEAKER) (test tydi=3860)
[2018-12-09 11:05] VITALS: BP 153/78
--- NOTE | 2018-12-09 16:42 | Operative Report ---
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 POSTOPERATIVE DIAGNOSIS: Squamous cell carcinoma of right foot. PROCEDURE: 1. Excisional preparation of Mohs defect of right foot 25 sq cm. 2. Full-thickness skin grafting of Mohs defect of right foot 25 sq cm. ANESTHESIA: General. HISTORY: The patient is a 68-year-old male, who had a biopsy-proven squamous cell carcinoma on the lateral and plantar aspect of the right foot. The patient underwent Mohs excisional preparation of the malignancy and has a resultant defect of 25 sq cm. The risks, benefits, and alternatives of treatment were discussed with the patient and the family. They are prepared to undergo the procedure as outlined. PROCEDURE IN DETAIL: The patient was marked preoperatively in the holding area. He was brought to the operating theater and after the induction of adequate general anesthesia, he was prepped and draped in a supine position and a time-out was performed. The procedure was begun by making a template of the wound and transferring this to the right inguinal area. The full-thickness graft was then designed and the area was then infiltrated with 1% Xylocaine with epinephrine, a total of 15 mL was used. An elliptical incision of skin and subcutaneous tissue was excised from the right inguinal area and the wound bed was made hemostatic using the electrocautery. The graft was then placed in a saline-soaked gauze and attention was turned to the closure of the donor site. The skin edges were undermined with the electrocautery widely and hemostasis was made absolute using the electrocautery. The donor site was closed with 3-0 Monocryl in an interrupted buried fashion to approximate the deep dermis and finally a 4-0 Monocryl running subcuticular stitch. Steri-Strips were applied. At this point, sharp excisional debridement of all the wound edges of the Mohs defect was performed. Bleeding was controlled utilizing the electrocautery. The wound was then curetted of all the colonized granulation tissue and then irrigated with antibiotic-containing solution. At this point, the full-thickness skin graft was defatted down to the deep dermal layer. It was placed on the wound dermal side down and then secured to the wound using 5-0 chromic sutures. Once the graft has been completely sutured to the wound, several incisions were made in order to allow the egress of fluid from beneath the graft. The graft was dressed with an incisional wound VAC, which has the dressing applied directly onto the skin graft and then the tubing from the dressing was attached to the suction unit. The unit was turned on and there was noted to be good suction and good seal. At this point, the patient was then returned to recovery room in satisfactory condition and discharged with a postoperative instruction sheet as well as a followup appointment. MD SAMM Bedoya/NATANL /[id number]
== END | disposition home or self-care (01) ==
LOC: OR 05:06
PROVIDERS: ATTEND Plastic Surgery
DX: Z48.3 Aftercare following surgery for neoplasm (principal); Z85.828 Personal history of other malignant neoplasm of skin; E11.9 Type 2 diabetes mellitus without complications; J44.9 Chronic obstructive pulmonary disease, unspecified; G47.33 Obstructive sleep apnea (adult) (pediatric); I25.810 Atherosclerosis of coronary artery bypass graft(s) without angina pectoris; M54.9 Dorsalgia, unspecified; F17.210 Nicotine dependence, cigarettes, uncomplicated; Z88.6 Allergy status to analgesic agent; Z88.8 Allergy status to other drugs, medicaments and biological substances; Z01.810 Encounter for preprocedural cardiovascular examination; Z01.812 Encounter for preprocedural laboratory examination; Z01.818 Encounter for other preprocedural examination; Z79.4 Long term (current) use of insulin; Z79.82 Long term (current) use of aspirin; Z95.1 Presence of aortocoronary bypass graft
CPT/HCPCS: 15240; 15241; 36415 ×2; 71046; 80048; 82948; 85025; 93005; J0690; J2001; J2250; J2405; J2704